=== PATIENT | male | born 1960 | race Hispanic/Latino ===

== ENCOUNTER 2019-12-07 12:00 | Inpatient (IN) | payer OTHER, MEDICARE ==
[~2019-12-07] VITALS: Ht 160 cm; Wt 67.1 kg
[2019-12-07] MEDS ORDERED: VANCOMYCIN 1GM+NS 250ML 250 ML IV SCH (13:45)
[2019-12-07] MEDS ORDERED: VANCOMYCIN 1GM+NS 250ML 250 ML IV ONE (14:20)
[2019-12-07] MEDS ORDERED: POTASSIUM CHLORIDE 20MEQ/100ML 100 ML IV PRN (20:00)
[2019-12-07] MEDS ORDERED: DIPHENHYDRAMINE HCL 25 MG CAPSULE PO PRN (20:00)
[2019-12-07] MEDS ORDERED: ONDANSETRON HCL 4 MG/2 ML VIAL IV PRN (20:00)
[2019-12-07] MEDS ORDERED: POTASSIUM CHLORIDE 10% ELIXIR 20 MEQ/15 ML UDCUP PO PRN (20:00)
[2019-12-07] MEDS ORDERED: MAGNESIUM 2GM PREMIX 50ML 50 ML IV PRN (20:00)
[2019-12-07] MEDS ORDERED: HYDRALAZINE HCL 20 MG/ML VIAL IV PRN (20:00)
[2019-12-07] MEDS ORDERED: ACETAMINOPHEN 325 MG TAB PO PRN ×2 (20:00)
[2019-12-07] MEDS ORDERED: POTASSIUM CHLORIDE 20 MEQ ERTAB PO PRN (20:00)
[2019-12-07] MEDS ORDERED: DiphenhydrAMINE HCL 50 MG/ML VIAL IV PRN (20:00)
[2019-12-07] MEDS ORDERED: LACTULOSE 20 GM/30 ML UDCUP PO PRN (20:00)
[2019-12-07] MEDS ORDERED: MORPHINE SULFATE 2 MG/ML 1ML SYG IV PRN (20:00)
[2019-12-07] MEDS ORDERED: NITROGLYCERIN 0.4 MG SL TAB SL PRN (20:00)
[2019-12-07] MEDS ORDERED: MAG HYDROX/AL HYDROX/SIMETH ES 30 ML SUSP UDCUP PO PRN (20:00)
[2019-12-07] MEDS ORDERED: GUAIFENESIN-DM 200/20 MG 10 ML PO PRN (20:00)
[2019-12-07] MEDS ORDERED: LIDOCAINE HCL-MPF 1% 2ML VIAL IV PRN (20:00)
[2019-12-07] MEDS: VANCOMYCIN 1GM+NS 250ML 250 ML IV SCH (23:00)
[2019-12-08] MEDS ORDERED: FAMOTIDINE/PF 20 MG/2 ML VIAL IV ONE (01:49)
[2019-12-08] MEDS ORDERED: ZOSYN 3.375GM+NS 50ML 50 ML IV ONE (01:49)
[2019-12-08] MEDS: ZOSYN 3.375GM+NS 50ML 50 ML IV SCH ×3 (05:00→20:59)
[2019-12-08] MEDS ORDERED: VANCOMYCIN 1GM+NS 250ML 250 ML IV ONE (06:27)
[2019-12-08] MEDS: INSULIN HUMULIN R 100 UNIT/ML 3ML SQ SCH ×4 (07:30→20:52)
[2019-12-08] MEDS: ENOXAPARIN SODIUM 40 MG/0.4 ML SYRINGE SQ SCH (09:00)
[2019-12-08] MEDS: FAMOTIDINE 20MG TAB 20 MG TAB PO SCH ×2 (09:00→20:57)
[2019-12-08] MEDS: VANCOMYCIN 1GM+NS 250ML 250 ML IV SCH ×2 (09:00→20:53)
[2019-12-08] MEDS ORDERED: VANCOMYCIN PROTOCOL PER PHARMACY IV PRN (09:00)
[2019-12-08] MEDS ORDERED: ENOXAPARIN SODIUM 40 MG/0.4 ML SYRINGE SQ ONE (09:02)
[2019-12-08 10:35] VITALS: BP 104/67; PULSE 63; RESP 20; TEMP 98.3
--- NOTE | 2019-12-08 10:40 | NUR ---
ADMISSION . [[facility] OF [facility], FOR SCROTAL CELLUITIS /ABSCESS. PT . AAO X 3 REVIEW PLAN OF CARE. AND CALL LIGHT IN REACH..
--- NOTE | 2019-12-08 14:56 | NUR ---
SPOKE WITH SPOUSE ON PHONE- CALL TO PATIENT , NO ANSWER, CALL TO SPOUSE CONRADO BECKHAM LISTED ON FACE SHEET STATES PATIENT LIVES WITH HER- MANY YEARS AGO BUT NOW THEY LIVES TOGETHER, PT USES NO DME, HAS NOT PROVIDER OR HOME HEALTH, PATIENT IS FORGETFUL AND REQUIRES A BIT OF WATCHING, DCP IS TO HOME, CON[facility]O TO PROVIDE TRANSPORT , CM TO FOLLOW Addendum: 12/08/19 at 1506 by KRISS CHRISTIE RN CM Amended: Links added.
[2019-12-08 16:00] VITALS: BP 114/81; PULSE 63; RESP 18; TEMP 97.7
[2019-12-08] MEDS: SODIUM CHLORIDE 0.9% 1000ML 1,000 ML IV SCH ×2 (16:15→20:58)
--- NOTE | 2019-12-08 17:00 | NUR ---
DR. HAND HERE , AND SPOKE WITH PT.OF THE SURGERY FOR TOMMORROW. RISK , EXPLAIN, AND ORDERS TO FOLLOW
[2019-12-08] MEDS ORDERED: IOHEXOL-350 75 ML VIAL IV ONE (18:48)
--- NOTE | 2019-12-08 19:00 | NUR ---
TO CT SCAN VIA WHEELCHAIR , CONSENT DONE, , ,
[2019-12-08 20:00] VITALS: BP 125/73; PULSE 62; RESP 20; TEMP 98.1
[2019-12-08 23:42] VITALS: BP 129/71; PULSE 62; RESP 20; TEMP 98
--- NOTE | 2019-12-08 23:52 | NUR ---
I spoke to Elle SNOW SHOVELER regarding patient's telemetry informed him patient has been NSR with BBB, no change since admission on the 6th. Orders received to go ahead and discontinue it. Patient made aware, verbalized understanding.
[2019-12-09] VITALS (32 sets, daily range): BP systolic 90–137; BP diastolic 34–90; PULSE 56–98; RESP 12–20; TEMP 97.4–98.9
[2019-12-09] MEDS: ZOSYN 3.375GM+NS 50ML 50 ML IV SCH ×3 (05:00→21:36)
[2019-12-09] MEDS: VANCOMYCIN 1GM+NS 250ML 250 ML IV SCH ×2 (08:29→21:36)
[2019-12-09] MEDS: ENOXAPARIN SODIUM 40 MG/0.4 ML SYRINGE SQ SCH (09:00)
[2019-12-09] MEDS: FAMOTIDINE 20MG TAB 20 MG TAB PO SCH (09:00)
[2019-12-09] MEDS ORDERED: SUCCINYLCHOLINE 200MG/10ML SYR ONE (12:42)
[2019-12-09] MEDS ORDERED: LIDOCAINE HCL MPF 1% 5ML VIAL ONE (12:42)
[2019-12-09] MEDS ORDERED: FENTANYL CITRATE PF 50 MCG/1 ML 2ML VIAL ONE (12:44)
[2019-12-09] MEDS ORDERED: PROPOFOL 10 MG/ML 20ML VIAL IV ONE ×2 (12:44→14:20)
[2019-12-09] MEDS ORDERED: GLYCOPYRROLATE 1 MG/5 ML SYRINGE ONE (13:05)
[2019-12-09] MEDS ORDERED: NALOXONE HCL 0.4 MG/1 ML ML ONE (14:06)
[2019-12-09] MEDS ORDERED: KETOROLAC TROMETHAMINE 30MG/ML ONE (14:56)
[2019-12-09] MEDS ORDERED: MEPERIDINE-PF 25 MG/ML SYG ONE (15:01)
--- NOTE | 2019-12-09 16:34 | NUR ---
1500 patient in surgery, unable to obtain IM Letter
[2019-12-09] MEDS: FAMOTIDINE/PF 20 MG/2 ML VIAL IV SCH (21:38)
[2019-12-09] MEDS: ZOLPIDEM TARTRATE 5 MG TAB PO PRN (21:53)
[2019-12-09] MEDS: ACETAMINOPHEN-CODEINE 300/30MG TAB PO PRN (21:54)
[2019-12-10 00:12] VITALS: BP 126/71; PULSE 64; RESP 20; TEMP 97.6
[2019-12-10 03:40] VITALS: BP 99/58; PULSE 55; RESP 18; TEMP 97.9
[2019-12-10] MEDS: ZOSYN 3.375GM+NS 50ML 50 ML IV SCH ×3 (04:16→21:24)
[2019-12-10 08:00] VITALS: BP 122/75; PULSE 57; RESP 16; TEMP 98.1
[2019-12-10] MEDS: VANCOMYCIN 1GM+NS 250ML 250 ML IV SCH ×2 (09:43→21:24)
[2019-12-10] MEDS: FAMOTIDINE/PF 20 MG/2 ML VIAL IV SCH ×2 (09:44→21:24)
[2019-12-10] MEDS: ENOXAPARIN SODIUM 40 MG/0.4 ML SYRINGE SQ SCH (09:44)
[2019-12-10] MEDS: ACETAMINOPHEN-CODEINE 300/30MG TAB PO PRN (09:45)
[2019-12-10 11:21] VITALS: BP 112/72; PULSE 58; RESP 18; TEMP 97.7
[2019-12-10 16:00] VITALS: BP 119/81; PULSE 60; RESP 16; TEMP 98.2
--- NOTE | 2019-12-10 19:30 | NUR ---
TEST NASAL SWAB FOR COVID TEST DONE, SENT TO LAB FOR ANALYSIS.
[2019-12-10 20:00] VITALS: BP 133/87; PULSE 67; RESP 19; TEMP 98.4
[2019-12-10] MEDS: ZOLPIDEM TARTRATE 5 MG TAB PO PRN (21:24)
--- NOTE | 2019-12-10 21:25 | NUR ---
MEDS SHIFT ASSESSMENT DONE, PLEASE REFER TO CHART. DUE MEDS ADMINISTERED, TOLERATED WELL. CALL LIGHT WITHIN REACH. WILL MONITOR PT. Addendum: 12/11/19 at 0021 by JACQUES REID RN RN Amended: Links added.
[2019-12-11] VITALS (7 sets, daily range): BP systolic 105–129; BP diastolic 56–80; PULSE 53–77; RESP 17–18; TEMP 96.7–98.6
--- NOTE | 2019-12-11 02:00 | NUR ---
ROUNDS PT RESTING WELL, FAIRLY ASLEEP. NO DISTRESS NOTED. KEPT UNDISTURBED FOR NOW. WILL MONITOR PT. CALL LIGHT WITHIN REACH.
[2019-12-11] MEDS: ZOSYN 3.375GM+NS 50ML 50 ML IV SCH (04:35)
--- NOTE | 2019-12-11 04:35 | NUR ---
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 DUE IV ANTIBIOTICS HUNG. ASSISTED PT TO BRUSH HIS TEETH. KEPT COMFORTABLE. FOR MORE CARE.
[2019-12-11] MEDS: FAMOTIDINE/PF 20 MG/2 ML VIAL IV SCH ×2 (10:12→20:21)
[2019-12-11] MEDS: VANCOMYCIN 1GM+NS 250ML 250 ML IV SCH ×2 (10:12→22:23)
[2019-12-11] MEDS: ACETAMINOPHEN-CODEINE 300/30MG TAB PO PRN (10:13)
[2019-12-11] MEDS: ENOXAPARIN SODIUM 40 MG/0.4 ML SYRINGE SQ SCH (10:13)
--- NOTE | 2019-12-11 17:45 | NUR ---
RIGHT ARM BASILIC VEIN ACCESSED, BUT AFTER MULTIPLE ATTEMPTS, UNABLE TO ADVANCE CATHETER TO SVC, KEPT TRAVELLING NORTH. CHEST XRAY ORDERED TO CONFIRM, BUT UNABLE TO ADVANCE TO SVC. RIGHT ARM PROCEDURE ABORTED. LEFT ARM BASILIC VEIN WAS SUCCESSFULLY ACCESSED AND (+) SALMAE PER VPS INDICATES PICC CORRECTLY PLACED AND OK TO USE PER PROTOCOL. RN AWARE. BOTH PROCEDURES DONE USING ASEPTIC TECHNIQUE.
--- NOTE | 2019-12-11 20:21 | NUR ---
MEDS SHIFT ASSESSMENT DONE, PLEASE REFER TO CHART. DUE MEDS ADMINISTERED, TOLERATED WELL. KEPT RESTED AND COMFORTABLE. CALL LIGHT WITHIN REACH. WILL MONITOR PT. Addendum: 12/12/19 at 0826 by JACQUES REID RN RN Amended: Links added.
--- NOTE | 2019-12-11 22:15 | NUR ---
SAIDA CINTRON THROUGH RESULTS = 10, PRINTED AND FAXED TO PHARMACY FOR DOSING. DOSE ADMINISTERED AND WILL FOLLOW UP ON DOSING IN AM.
[2019-12-11] MEDS: ZOLPIDEM TARTRATE 5 MG TAB PO PRN (22:23)
--- NOTE | 2019-12-12 02:00 | NUR ---
ROUNDS PT RESTING WELL, FAIRLY ASLEEP WITH RESPIRATIONS EVEN AND UNLABORED. NO DISTRESS NOTED. KEPT RESTED AND COMFORTABLE. CALL LIGHT WITHIN REACH. WILL MONITOR PT.
[2019-12-12 04:01] VITALS: BP 116/71; PULSE 53; RESP 18; TEMP 98
--- NOTE | 2019-12-12 06:00 | NUR ---
ROUNDS PT RESTING WELL, DENIES ANY NEEDS AT THIS TIME. NO DISTRESS NOTED. KEPT RESTED AND COMFORTABLE. FOR MORE CARE.
[2019-12-12 07:46] VITALS: BP 112/51; PULSE 57; RESP 18; TEMP 97.8
[2019-12-12] MEDS: VANCOMYCIN 1GM+NS 250ML 250 ML IV SCH (10:49)
[2019-12-12] MEDS: FAMOTIDINE/PF 20 MG/2 ML VIAL IV SCH (10:50)
[2019-12-12] MEDS: ENOXAPARIN SODIUM 40 MG/0.4 ML SYRINGE SQ SCH (10:52)
--- NOTE | 2019-12-12 11:33 | NUR ---
JYOTI note: Filippo Keene CM spoke to Consuelo townsend/Filippo Keene, pt has approval. Pt safe to transfer via GP transport van once pt clear to DC. Primary nurse aware. CM to cont to follow up.
[2019-12-12 11:36] VITALS: BP 120/71; PULSE 64; RESP 19; TEMP 98.4
[2019-12-12 16:56] VITALS: BP 126/88; PULSE 60; RESP 18; TEMP 98.3
--- NOTE | 2019-12-12 20:25 | NUR ---
DC'D PT WITH ROSINA TO [facility] PER MD ORDER. PIV REMOVED. USING ASEPTIC TECHNIQUE REMOVED WOUND VAC PRIOR TO DC. APPLIED WET TO DRY DRESSING TO SCROTUM. PT DENIES ANY PAIN, IN NO APPARENT DISTRESS. REPORT GIVEN TO ILDEFONSO CHAPPELL AT [facility]. 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
== END 2019-12-12 20:24 | DRG 717 ==
LOC: EDH 12:00 → OBSVTOIN 19:49 → EDHIP 19:49 → 3BH 12-08 10:26
PROVIDERS: ADMIT Internal Medicine; ATTEND Internal Medicine
PROC: 0VB50ZZ Excision of Scrotum, Open Approach (ICD-10-PCS; principal; 2019-12-09 13:32)
DX: N49.2 Inflammatory disorders of scrotum (principal); N39.0 Urinary tract infection, site not specified; E78.5 Hyperlipidemia, unspecified; F17.200 Nicotine dependence, unspecified, uncomplicated; F41.9 Anxiety disorder, unspecified; K21.9 Gastro-esophageal reflux disease without esophagitis; E11.9 Type 2 diabetes mellitus without complications; I10 Essential (primary) hypertension; B95.62 Methicillin resistant Staphylococcus aureus infection as the cause of diseases classified elsewhere; Z20.828 Contact with and (suspected) exposure to other viral communicable diseases

== ENCOUNTER → 2020-12-26 | Outpatient (CLI) | payer OTHER, MEDICARE ==
[~2020-12-26] MED LIST: AMOX1TAB16 PO; ASPI-1005 PO; ATOR20TA65 PO; CYAN-52 PO; SERT-439 PO; SULF1TAB42 PO
== END | disposition home or self-care (01) ==
LOC: RAH 15:08
PROVIDERS: ATTEND Internal Medicine
DX: N49.2 Inflammatory disorders of scrotum (principal); N50.3 Cyst of epididymis
CPT/HCPCS: 76870